=== PATIENT | male | born 1965 | race Caucasian/White ===

== ENCOUNTER 2022-02-19 10:45 | Emergency (ER) | payer MEDICAID, SELFPAY ==
[2022-02-19 11:04] VITALS: BP 122/75; PULSE 116; RESP 16; TEMP 36.6; O2SAT 98
--- NOTE | 2022-02-19 12:00 | DI.RAD_ITS ---
Exam(s) XR SHOULDER RT COMPLETE 2+V EXAM: XR SHOULDER RT COMPLETE 2+V CLINICAL HISTORY: pain. TECHNIQUE: 2D digital imaging was performed. COMPARISON: CR XR SHOULDER LT COMPLETE 2+V from 02/19/2022 FINDINGS: Five views: No evidence of fracture or dislocation. There are too small adjacent calcifications the soft tissues immediately adjacent to the greater tuberosity on the lateral aspect of the humeral head, consistent with calcific tendinitis-bursitis. Both measure 2 millimeters. No other calcifications in the soft tissues evident. Subacromial space is not diminished. AC joint unremarkable. No obvious degenerat jose changes in the glenohumeral joint. . IMPRESSION: Calcific rotator cuff tendinitis. Similar to the opposite side. DATA REPOSITORY: RADIATION DOSE DELIVERED:
--- NOTE | 2022-02-19 12:00 | RT.EKG_ITS ---
APPROVED REPORT Exam: Resting ECG Reason for Exam: pain Patient Location: E HR:102 bpm ECG Measurements Heart Rate 102 AXIS WA 134 P 24 QRSd 65 QRS 59 QT 322 T 58 QTc 420 Conclusion Sinus tachycardia...rate> 99 Consider anteroseptal infarct...Q >30mS, dimin R, V1-V2. Sinus. Normal axis. No STEMI. I have reviewed and interpreted ECG and agree with software generated interpretation.
--- NOTE | 2022-02-19 12:00 | DI.RAD_ITS ---
Exam(s) XR SHOULDER LT COMPLETE 2+V EXAM: XR SHOULDER LT COMPLETE 2+V CLINICAL HISTORY: pain. TECHNIQUE: 2D digital imaging was performed. COMPARISON: No exams were available for comparison FINDINGS: Five views: No evidence of acute fracture or dislocation. There is a single 1 millimeter calcification in soft t issues adjacent to the greater tuberosity on the lateral aspect of the humeral head consistent with c alcific to tendinitis. No calcifications the immediate subacromial space. Moderate degenerative leroy nges are noted in the AC joint with small downgoing osteophytes. Mild degenerative changes in the gl enohumeral joint. Moderate size degenerative subarticular cyst in the mid upper humeral head noted. No os acromiale. IMPRESSION: Subtle rotator cuff tendinitis. DATA REPOSITORY: RADIATION DOSE DELIVERED:
--- NOTE | 2022-02-19 12:00 | DI.RAD_ITS ---
Exam(s) XR CHEST 2V PA LATERAL EXAM: XR CHEST 2V PA LATERAL CLINICAL HISTORY: shoulder pain. TECHNIQUE: 2D digital imaging was performed. COMPARISON: No exams were available for comparison FINDINGS: 2 views: Heart size is normal. The mediastinum is not widened. Lungs are clear. No infiltrates nor pleural effusions. IMPRESSION: No acute pulmonary findings. DATA REPOSITORY: RADIATION DOSE DELIVERED:
[2022-02-19] MEDS: oxyCODONE 10 MG TAB PO (12:51)
[2022-02-19] MEDS: Normal Saline 1,000 ML 1000 ML IV (13:00)
[2022-02-19 13:23] LABS: Abs Immature Grans 0.06 10^3/uL (0.0-0.06); Absolute Lymphocyte Count 1.99 10^3/uL (1.2-3.4); Absolute Monocyte Count 0.79 10^3/uL (0.1-0.8); Absolute Neutrophil Count 9.02 10^3/uL (1.2-6.7); Basophils % 0.3; Eosinophils % 0.8; HGB 13.5 g/dL (13.5-17.5); Immature Grans % 0.5; Lymphocytes % 16.6; MCH 31.1 pg (27.0-33.0); MCHC 33.8 % (32.0-36.0); MCV 92 fL (80-95); MPV 9.1 fL (8.0-11.0); Monocytes % 6.6; Neutrophils % 75.2; Platelet Count 251 10^3/uL (130-400); RBC 4.34 10^6/uL (4.36-5.78); RDW 12.9 % (11.8-14.1); RDW-SD 43.8 fL; WBC 11.99 10^3/uL (4.4-10.8)
[2022-02-19 13:24] LABS: Absolute Basophil Count 0.04 10^3/uL (0.0-0.2); ESR 39 mm/hr (0-20)
[2022-02-19 13:41] LABS: ALT 32 U/L (16-63); AST 16 U/L (15-37); Albumin 4.1 g/dL (3.4-5.0); Alkaline Phosphatase 75 U/L (46-116); Anion Gap 7.4 mmol/L (3-11); BUN 12 mg/dL (7-18); Bilirubin, Total 0.3 mg/dL (0.2-1.0); CO2 31.6 mmol/L (21.0-32.0); Chloride 99 mmol/L (98-107); Creatine Kinase 60 U/L (39-308); Estimated GFR 89.44 (mL/min/1.73m2); Glucose 111 mg/dL (74-106); Potassium 4.1 mmol/L (3.5-5.1); Sodium 138 mmol/L (136-145)
[2022-02-19 13:42] LABS: C-Reactive Protein < 0.05 mg/dL (0.0-0.3)
[2022-02-19 13:43] LABS: Troponin I < 50 ng/L (<or=60)
[2022-02-19 14:05] VITALS: BP 124/86; PULSE 97; RESP 16; TEMP 36.6; O2SAT 97
--- NOTE | 2022-02-19 14:19 | ED.GENADUL_ITS ---
Discharge Plan Disposition Patient Disposition: HOME Condition: Stable Discharge Details Clinical Impression: Arthralgia, Hypercalcemia Primary Care Provider: Unknown,Unknown ED Provider: Tracy Israel Home Meds and New Rx's Prescriptions: New prednisone 20 mg tablet 40 mg PO DAILY Qty: 10 0RF Continued atorvastatin 40 mg tablet 40 mg PO DAILY Label Comments: TAKE ONE TABLET BY MOUTH EVERY DAY insulin glargine [Lantus U-100 Insulin] 100 unit/mL solution 26 unit SUBCUT DAILY Label Comments: INJECT 26 UNITS UNDER THE SKIN EVERY NIGHT dicyclomine 20 mg tablet 20 mg PO DAILY Label Comments: TAKE ONE-HALF TABLET BY MOUTH EVERY 6 HOURS NEEDED FOR ABDOMINAL PAOIN metformin 1,000 mg tablet 1,000 mg PO BID Label Comments: TAKE ONE TABLET BY MOUTH TWICE A DAY WITH MEALS nitroglycerin 0.4 mg tablet, sublingual 0.4 mg sublingual PRN PRN Label Comments: PLACE ONE TABLET UNDER THE TONGUE EVERY 5 MINUTES FOR UP TO 3 DOSES NEEDED FOR CHEST PAIN. IF CHEST PAIN STILL PERSISTS CONTACT 911 gabapentin 300 mg capsule 300 mg PO BID Label Comments: TAKE ONE CAPSULE BY MOUTH EVERY MORNING AND 2 CAPSULES AT NIGHT lisinopril 5 mg tablet 5 mg PO DAILY Label Comments: TAKE ONE TABLET BY MOUTH EVERY DAY Trulicity 1.5 mg/0.5 mL pen injector 1.5 mg SUBCUT QWEEK Label Comments: INJECT 1.5MG UNDER THE SKIN ONCE WEEKLY Held Otezla 30 mg tablet 30 mg PO DAILY Hold Instructions: Resume on 03/02/22. hold until you talk to doctor Discharge Instructions Additional Instructions: Stop taking your Teslac, call your doctor regarding this medication as it may be contributing to your pain Take the prednisone as prescribed Be aware that it will cause your blood sugar to increase temporarily and will resolve once he is off of medication Please return with chest pain, shortness of breath, or with any new or worsening complaints Follow-up with your doctor regarding her calcium this week, he should have her calcium level rechecked Stay away from Tums or any supplemental calcium Discharge Data Discharge Date/Time-TO BE ENTERED AT DEPARTURE: 02/19/22 14:55 Medical Decision Making ca mildly elevated, given fluids, recheck with pcp this week concern for adr to otezla, will talk to pcp placed on steroid with precautions associated with dm reviewed no evidence of cardiac etiology of pt's symptoms xrays show evidence of degenerative changes without acute abnormality Medical Records Medical records reviewed: Yes I reviewed the patient's medical records. Lab Data Lab results reviewed: Yes I reviewed the patient's lab results. ECG Data Prior ECG tracings: available for review HPI General Date/Time Provider Initiated Documentation: 02/19/22 11:44 . HPI Narrative: This 56-year-old gentleman with history of gastroparesis, psoriasis, diabetes presents with report of bilateral shoulder pain which has been present for the past 2 months. He states started around the time when he started his new medication Otezla for psoriasis. He presents today secondary to more persistent and worsening symptoms. He denies any chest pain or shortness of breath. He denies any numbness or tingling. He denies any neck pain, fever, or chills. He states his blood sugars have been within normal limits He did see rheumatology for psoriasis and was worked up for other pathologies which were all negative per patient. Related Data Home Medications Medication Instructions Recorded Confirmed apremilast 30 mg tablet (Otezla) 30 mg PO DAILY 02/19/22 02/19/22 atorvastatin 40 mg tablet 40 mg PO DAILY 02/19/22 02/19/22 dicyclomine 20 mg tablet 20 mg PO DAILY 02/19/22 02/19/22 dulaglutide 1.5 mg/0.5 mL 1.5 mg subcut QWEEK 02/19/22 02/19/22 subcutaneous pen injector (Trulicity) gabapentin 300 mg capsule 300 mg PO BID 02/19/22 02/19/22 insulin glargine 100 unit/mL 26 unit subcut DAILY 02/19/22 02/19/22 subcutaneous solution (Lantus U-100 Insulin) lisinopril 5 mg tablet 5 mg PO DAILY 02/19/22 02/19/22 metformin 1,000 mg tablet 1,000 mg PO BID 02/19/22 02/19/22 nitroglycerin 0.4 mg sublingual 0.4 mg sublingual PRN PRN 02/19/22 02/19/22 tablet prednisone 20 mg tablet 40 mg PO DAILY #10 tabs 02/19/22 Previous Rx's Medication Instructions Recorded prednisone 20 mg tablet 40 mg PO DAILY #10 tabs 02/19/22 Allergies Allergy/AdvReac Type Severity Reaction Status Date / Time No Known Allergies Allergy Unverified 02/19/22 11:10 General Stated Complaint: Orthopedic FELISHA: 4 Review of Systems All systems reviewed & are unremarkable except as noted in HPI and below PFSH All Active Problems (Updated 02/19/22 @ 14:27 by ANDREA Salgado) Arthralgia (Acute) Hypercalcemia (Acute) Social History Smoking/Tobacco Use Status: Current every day Tobacco Type: cigarettes Smoking risk assessment performed?: Yes Alcohol Intake: never Substance use type: does not use Do you feel safe at home: Yes Do you feel safe in your relationship?: Yes Exam Const General: cooperative, comfortable and no acute distress HENMT Head: normal to inspection Eyes Pupils: PERRL Neck Other: no midline tenderness Chest Chest: normal inspection of the chest Resp Effort & Inspection: normal respiratory effort Auscultation: clear to auscultation bilaterally Cardio Rate: regular rate Rhythm: regular rhythm Other: distal pulses intact GI Inspection: normal to inspection Skin General skin exam: no rashes or lesions noted Neuro General: patient alert and patient oriented x3 Extrem Other: tenderness with palpation to bilateral UE, decreased ROM, no swelling or rashes Course Vital Signs Vital signs: Vital Signs Temperature 36.6 C 02/19/22 11:04 Pulse 116 H 02/19/22 11:04 Respiratory Rate 16 02/19/22 11:04 Blood Pressure 122/75 02/19/22 11:04 Pulse Oximetry 98 02/19/22 11:04 Temperature 36.6 C 02/19/22 14:05 Temperature Source Temporal Artery Scan 02/19/22 14:05 Pulse 97 H 02/19/22 14:05 Respiratory Rate 16 02/19/22 14:05 Respiratory Effort 02/19/22 11:15 Blood Pressure 124/86 02/19/22 14:05 Pulse Oximetry 97 02/19/22 14:05 Oxygen Delivery Method Room Air 02/19/22 14:05 Oxygen Flow Rate 0 02/19/22 14:05 Pain Level 5 02/19/22 14:05 Lab/Test Results Lab/Test Results: Laboratory Tests Range/Units 02/19/22 02/19/22 02/19/22 13:15 13:15 13:15 WBC (4.4-10.8) 10^3/uL 11.99 H RBC (4.36-5.78) 10^6/uL 4.34 L Hgb (13.5-17.5) g/dL 13.5 Hct (40.0-50.0) % 40.0 MCV (80-95) fL 92 MCH (27.0-33.0) pg 31.1 MCHC (32.0-36.0) % 33.8 RDW (11.8-14.1) % 12.9 Plt Count (130-400) 10^3/uL 251 MPV (8.0-11.0) fL 9.1 Immature Gran % 0.5 Neutrophils % 75.2 Lymphocytes % 16.6 Monocytes % 6.6 Eosinophils % 0.8 Basophils % 0.3 Nucleated RBC % (0.0-0.3) % 0.0 Absolute Neutrophils (1.2-6.7) 10^3/uL 9.02 H Absolute Lymphocytes (1.2-3.4) 10^3/uL 1.99 Absolute Monocytes (0.1-0.8) 10^3/uL 0.79 Absolute Eosinophils (0.0-0.7) 10^3/uL 0.10 Absolute Basophils (0.0-0.2) 10^3/uL 0.04 ESR (0-20) mm/hr 39 H Sodium (136-145) mmol/L 138 Potassium (3.5-5.1) mmol/L 4.1 Chloride (98-107) mmol/L 99 Carbon Dioxide (21.0-32.0) mmol/L 31.6 Anion Gap (3-11) mmol/L 7.4 BUN (7-18) mg/dL 12 Creatinine (0.70-1.30) mg/dL 1.0 Est GFR (CKD-EPI 2020) (mL/min/1.73m2) 89.44 Glucose (74-106) mg/dL 111 H Calcium (8.5-10.1) mg/dL 11.0 H Total Bilirubin (0.2-1.0) mg/dL 0.3 AST (15-37) U/L 16 ALT (16-63) U/L 32 Alkaline Phosphatase (46-116) U/L 75 Creatine Kinase (39-308) U/L 60 Troponin I (<or=60) ng/L C-Reactive Protein (0.0-0.3) mg/dL < 0.05 Total Protein (6.4-8.2) g/dL 9.0 H Albumin (3.4-5.0) g/dL 4.1 Range/Units 02/19/22 13:15 WBC (4.4-10.8) 10^3/uL RBC (4.36-5.78) 10^6/uL Hgb (13.5-17.5) g/dL Hct (40.0-50.0) % MCV (80-95) fL MCH (27.0-33.0) pg MCHC (32.0-36.0) % RDW (11.8-14.1) % Plt Count (130-400) 10^3/uL MPV (8.0-11.0) fL Immature Gran % Neutrophils % Lymphocytes % Monocytes % Eosinophils % Basophils % Nucleated RBC % (0.0-0.3) % Absolute Neutrophils (1.2-6.7) 10^3/uL Absolute Lymphocytes (1.2-3.4) 10^3/uL Absolute Monocytes (0.1-0.8) 10^3/uL Absolute Eosinophils (0.0-0.7) 10^3/uL Absolute Basophils (0.0-0.2) 10^3/uL ESR (0-20) mm/hr Sodium (136-145) mmol/L Potassium (3.5-5.1) mmol/L Chloride (98-107) mmol/L Carbon Dioxide (21.0-32.0) mmol/L Anion Gap (3-11) mmol/L BUN (7-18) mg/dL Creatinine (0.70-1.30) mg/dL Est GFR (CKD-EPI 2020) (mL/min/1.73m2) Glucose (74-106) mg/dL Calcium (8.5-10.1) mg/dL Total Bilirubin (0.2-1.0) mg/dL AST (15-37) U/L ALT (16-63) U/L Alkaline Phosphatase (46-116) U/L Creatine Kinase (39-308) U/L Troponin I (<or=60) ng/L < 50 C-Reactive Protein (0.0-0.3) mg/dL Total Protein (6.4-8.2) g/dL Albumin (3.4-5.0) g/dL
== END 2022-02-19 14:55 | disposition home or self-care (01) ==
PROVIDERS: Emergency Provider Physician Assistant
DX: M25.511 Pain in right shoulder (principal); M25.512 Pain in left shoulder; E83.52 Hypercalcemia; F17.210 Nicotine dependence, cigarettes, uncomplicated
CPT/HCPCS: 80053; 82550; 85652; 93005; 96360; 99284; 71046; 73030; 84484; 85025; 86140; 93010